=== PATIENT | female | born 1965 | race Caucasian/White ===

== ENCOUNTER 2017-10-07 06:44 | Emergency (ER) | payer BC, SELFPAY ==
--- NOTE | 2017-10-07 07:59 | RAD ---
RIGHT FOOT THREE VIEWS: History: 52-year-old female with history of right foot pain following a prior injury. FINDINGS: Post op changes noted at the level of the ankle joint with severe ankle joint arthrosis. Calcaneal pl lissa and Achilles enthesophytes. Degenerative changes of the foot, particularly the first metatarsal phalangeal joint. No evidence for an overt acute fracture. IMPRESSION: Degenerative changes without acute fracture or dislocation. Severe arthrosis of the ankle joint with extensive post-operative change. POS: [facility]
--- NOTE | 2017-10-07 08:04 | RAD ---
RIGHT ANKLE 3 VIEWS: HISTORY: A 52-year-old female with a history of right foot and ankle pain. The patient had surgery on a fract ured foot approximately 8 months ago. FINDINGS: Three views of the right ankle demonstrate internal fixation changes with intramedullary jhon stabiliz ing the distal fibular and 2 internal fixation screws as well as a cable stabilized in the distal tib ia and fibula. There is very severe tibial talar joint arthrosis with marked cartilage loss and scle rosis and eburnation and some subchondral cystic changes. There is some abnormal widening of the dis maria e tibial fibular space. There still is some type of a linear defect through the distal medial mall eolus. This fracture may not be healed. No evidence for an overt acute fracture. IMPRESSION: Very markedly severe tibiotalar joint arthrosis as well as arthrosis of the distal tibiofibular joint with multiple internal fixation changes. Given history of trauma, this probably represents severe p osttraumatic ankle joint arthritis with questionable union of the medial malleolar fracture and sever e resultant overall deformity of the ankle joint. No evidence for an overt acute fracture. POS: [facility]
== END 2017-10-07 08:23 | disposition home or self-care (01) ==
LOC: ERS 06:44
DX: M25.571 Pain in right ankle and joints of right foot (principal); E03.9 Hypothyroidism, unspecified; F32.9 Major depressive disorder, single episode, unspecified; F17.210 Nicotine dependence, cigarettes, uncomplicated; Z79.899 Other long term (current) drug therapy
CPT/HCPCS: 99406

== ENCOUNTER → 2017-11-27 | Day surgery (SDC) | payer OTHER ==
[~2017-11-27] MED LIST: Lidocaine 1% PF 5 ML VIAL ONE; Sodium Bicarbonate 2.5 MEQ/5 ML VIAL ONE
[2017-11-27 11:15] VITALS: BP 122/77; TEMP 98.1
--- NOTE | 2017-11-27 11:55 | ULT ---
ULTRASOUND GUIDED THYROID FINE NEEDLE ASPIRATION: Date: 11/27/17 COMPARISON: Outside facility ultrasound dated 06/12/17. TECHNIQUE/FINDINGS: Patient brought to the ultrasound suite. All questions were answered. Informed consent was obtained. Timeout was performed. The right neck was prepped and draped in the normal sterile fashion. 3 mL of buffered lidocaine was i nstilled into the superficial and deep soft tissues. Using ultrasound guidance, a total of four 25 ga uge fine needle aspirations were performed and handed to the educational technology coordinator. IMPRESSION: Technically successful ultrasound guided fine needle aspiration. POS: [facility]
== END ==
LOC: ULT 10:37
PROVIDERS: ATTEND Otolaryngology Plastic Surgery within the Head & Neck
PROC: 0G9K3ZX Drainage of Thyroid Gland, Percutaneous Approach, Diagnostic (ICD-10-PCS; principal; 2017-11-27)
PROC: BG43ZZZ Ultrasonography of Parathyroid Glands (ICD-10-PCS; principal; 2017-11-27)
DX: E04.1 Nontoxic single thyroid nodule (principal)
CPT/HCPCS: 10022; 76942; 88173; J2001

== ENCOUNTER 2018-06-24 10:05 | Outpatient (CLI) | payer OTHER ==
[~2018-06-24 10:05] MED LIST changes: +Gadobenate Dimeglumine 529 MG/1 ML (20ML VIAL) ONE; -Lidocaine 1% PF 5 ML VIAL ONE; -Sodium Bicarbonate 2.5 MEQ/5 ML VIAL ONE
--- NOTE | 2018-06-24 14:15 | MRI ---
RIGHT LOWER EXTREMITY MRI WITH AND WITHOUT IV CONTRAST: Date: 06/24/18 HISTORY: 53-year-old female with more pain in left lower leg, prior surgery on 12/21/17. FINDINGS: Comparison made to a prior plain film examination dated 10/07/17. Multiplanar, multisequence MRI examination of the lower leg, including the ankle, demonstrates extens albert postoperative changes at the ankle joint with metallic susceptibility artifact. There is severe n arrowing of the tibiotalar joint with some associated abnormal marrow signal in the distal tibia, as well as the talar dome, with several osteochondral lesions involving the talar dome. There also appea rs to be considerable sclerosis. There is extensive arthrosis of the fibular talar joint, as well as medial malleolar talar joint. Internal fixation changes stabilizing medial malleolus and intramedulla ry jhon stabilizing distal fibula. At the mid fibula level, there is a focal area of exuberant callus, probably related to an old, healed injury. There is no evidence for drainable abscess. There is some muscle volume loss within the calf musculature, with relative sparing of the posterior tibialis musc le. Achilles tendon and plantar fascia appear intact. The flexor, extensor, and peroneus tendons appe ar intact. Ankle collateral ligament complexes are very poorly demonstrated because of the metal susc eptibility. IMPRESSION: Markedly abnormal tibiotalar joint with joint space loss and sclerosis and eburnation, as well as sub chondral cystic changes of the talar dome and multiple places, evidence for multiple talar dome osteo chondral lesions, as well as arthrosis of the fibular talar joint and medial malleolar talar joint. I nternal fixation of the medial malleolus and jhon stabilizing the distal fibula. No evidence for a wilian inable abscess. There is some generalized muscle volume loss within the calf musculature with relativ e sparing of the posterior tibialis muscle. No other significant acute process. POS: [facility]
== END 2018-06-24 10:06 | disposition home or self-care (01) ==
LOC: BICMRI 10:05 → SCSMRI 10:06
DX: Z12.31 Encounter for screening mammogram for malignant neoplasm of breast (principal); M25.571 Pain in right ankle and joints of right foot; M89.8X6 Other specified disorders of bone, lower leg; M19.071 Primary osteoarthritis, right ankle and foot; Z80.3 Family history of malignant neoplasm of breast
CPT/HCPCS: 77063; 77067

== ENCOUNTER 2019-01-27 15:14 | Outpatient (CLI) | payer OTHER ==
--- NOTE | 2019-01-27 15:54 | MMO ---
Right Breast MAMMO Unilat Diag DDI RT+MELLISA. CLINICAL HISTORY: Patient is 54 years old and is seen for diagnostic exam and lump or thickening in the right breast. The patient has no family history of breast cancer. The patient has no personal history of cancer. VIEWS: The views performed were: right craniocaudal with tomosynthesis; right mediolateral oblique with tomosynthesis; and right mediolateral. FILMS COMPARED: The present examination has been compared to prior imaging studies performed at [facility] on 02/28/2010, 09/19/2013, 06/24/2018 and 01/27/2019. MAMMOGRAM FINDINGS: There are scattered fibroglandular densities. No mammographic abnormality in the region of palpable concern. An intramammary lymph node is seen by ultrasound in this location. There are no suspicious masses, suspicious calcifications, or new areas of architectural distortion. IMPRESSION: THERE IS NO MAMMOGRAPHIC EVIDENCE OF MALIGNANCY. THE RESULTS OF THIS EXAM WERE SENT TO THE PATIENT. ACR BI-RADS Category 2 - Benign finding MAMMOGRAPHY NOTE: 1. A negative mammogram report should not delay a biopsy if a dominant of clinically suspicious mass is present. 2. Approximately 10% to 15% of breast cancers are not detected by mammography. 3. Adenosis and dense breasts may obscure an underlying neoplasm.
--- NOTE | 2019-01-27 16:05 | ULT ---
LIMITED RIGHT BREAST ULTRASOUND: DATE: 01/27/2019. PROVIDED CLINICAL HISTORY: Right breast palpable abnormality. FINDINGS: Limited sonographic interrogation of the right breast was performed in the region of palpable concern . Intramammary lymph node measuring about 6 mm is documented in this location. No concerning sonogr aphic findings are evident. IMPRESSION: BIRADS category 2 - benign findings. POS: [facility]
== END 2019-01-27 15:15 | disposition home or self-care (01) ==
LOC: BICMAMMO 15:14
PROVIDERS: ATTEND Family Medicine
DX: N63.10 Unspecified lump in the right breast, unspecified quadrant (principal)
CPT/HCPCS: G0279

== ENCOUNTER 2019-07-26 09:37 | Day surgery (SDC) | payer OTHER ==
[2019-07-25 15:17] VITALS: BMI 26.5
[2019-07-26] MEDS ORDERED: PROPOFOL 200 MG/20 ML VIAL ONE (10:15)
[2019-07-26] MEDS ORDERED: Lidocaine 1% PF 5 ML VIAL ONE (10:15)
[2019-07-26] MEDS ORDERED: Ondansetron PF 4 MG/2 ML Vial ONE (10:15)
[2019-07-26] MEDS ORDERED: ePHEDrine/0.9% NaCl/PF SYRINGE 50 mg/10 ml ONE (10:15)
[2019-07-26] MEDS ORDERED: Ketorolac Tromethamine 30 MG/ML VIAL ONE (10:15)
[2019-07-26] MEDS ORDERED: Dexamethasone 20 MG/5 ML VIAL ONE (10:15)
[2019-07-26] MEDS ORDERED: PHENYLEPHRINE-NS 100 MCG/ML 10 ML SYRINGE ONE (10:15)
[2019-07-26 10:54] LABS: #Basophils 0.1 thou/uL (0.0-0.2); #Eosinphils 0.7 thou/uL (0.0-0.7); #Lymphocytes 4.4 thou/uL (1.20-3.40); #Monocytes 0.6 thou/uL (0.11-0.59); #Neutrophils 4.5 thou/uL (1.40-6.50); %Basophils 1.2 % (0.0-1.0); %Eosinophils 6.5 % (0.0-10.0); %Lymphocytes 42.9 % (21.0-51.0); %Monocytes 5.9 % (0.0-10.0); %Neutrophils 43.6 % (42.0-75.0); Hemoglobin 14.2 g/dL (12.0-16.0); Mean Corpuscular HGB CONC 33.5 g/dL (32.0-36.0); Mean Corpuscular Hemoglobin 29.7 pg (27.0-31.0); Mean Corpuscular Volume 88.4 fL (78.0-98.0); Mean Platelet Volume 8.6 fL (7.4-10.4); Platelet Count 223 thou/uL (130-400); RBC Distribution Width 15.9 % (11.5-14.5); Red Blood Cell (RBC) Count 4.79 mill/uL (4.20-5.40); White Blood Cell (WBC) Count 10.2 thou/uL (4.8-10.8)
[2019-07-26 10:56] LABS: Anion Gap 12 mmol/L (10-20); BUN (Urea Nitrogen) 10 mg/dL (9.8-20.1); Calc. Creatinine Clearance 78 mL/min (70-130); Calcium 9.3 mg/dL (7.8-10.44); Carbon Dioxide 28 mmol/L (22-29); Chloride 104 mmol/L (98-107); Estimated GFR-MDRD 68; Glucose 87 mg/dL (70-105); Potassium 3.9 mmol/L (3.5-5.1); Sodium 140 mmol/L (136-145)
[2019-07-26 11:06] LABS: Bilirubin Negative (Negative); Blood, Urine Negative (Negative); Clarity Clear (Clear); Glucose, Urine (Dipstick) Normal (Negative); Leukocyte 75 Leu/uL (Negative); Nitrite Negative (Negative); Protein, Urine (Dipstick) 20 mg/dL (Neg-Trace); RBC/HPF 0-3 HPF (0-3); WBC/HPF 0-3 HPF (0-3)
[2019-07-26 11:19] LABS: Bacteria/HPF Rare-Few HPF (None Seen)
[2019-07-26] MEDS ORDERED: Bupivacaine PF 0.5% 30 ML VIAL ONE (14:21)
[2019-07-26] MEDS ORDERED: Bacitracin Zinc Ointment 30 gm TUBE ONE (14:21)
[2019-07-26] MEDS ORDERED: Sodium Chloride 0.9% 10 ML ONE (14:21)
[2019-07-26] MEDS ORDERED: Betamet Acet/Betamet Na Ph 30 MG/5 ML VIAL ONE (14:21)
[2019-07-26] MEDS ORDERED: Fentanyl 100 MCG/2 ML VIAL ONE (14:26)
--- NOTE | 2019-07-26 17:06 | OP ---
DATE OF PROCEDURE: 07/26/2019 PREOPERATIVE DIAGNOSIS: Left 1st dorsal compartment tenosynovitis. POSTOPERATIVE DIAGNOSIS AND FINDINGS: 1. Very thick tenosynovium, 1st dorsal compartment abductor pollicis longus and then a separate compartment of extensor pollicis brevis, necessitating compartment release. PROCEDURES PERFORMED: 1. Left 1st dorsal compartment extensor tendon tenosynovectomy, radical, all within the same compartment. 2. Left de Quervain release. SPECIMEN SENT: Tenosynovium. TOURNIQUET TIME: 10 minutes. ESTIMATED BLOOD LOSS: 5 mL. DESCRIPTION OF PROCEDURE: After successful general endotracheal anesthesia, the limb was prepped and draped. Time-out was done appropriately. We then injected the outline zigzag incision over the 1st dorsal compartment, that was 15 mm long, with the 10 mL of 0.5% Marcaine. We inflated the tourniquet after the limb exsanguination. The skin incision was carried with a knife through both layers of the dermis and epidermis, found the superficial radial nerve branches and then gently dissected from the center field. The extensor compartment was very thick as was the tenosynovium proximal to this. We made an incision this through [place] blade, released it. Then, we saw the abductor pollicis longus, it had two heads and extensor pollicis brevis was in a separate compartment. Released this compartment as well. We then had to perform a radical extensor tenosynovectomy of the abductor pollicis longus because of the tenosynovium, still protected the nerve, sent the specimen off to the lab. We placed 5 mL of Celestone along the tendon and we took it through several cycles. We maintained a very robust volar area, so it would not sublux, released the tourniquet, obtained hemostasis, and closed the wound with interrupted 4-0 nylon in a simple pattern. Bulky dressing was applied. The patient left the operating room without evidence of anesthetic or operative complication. Job ID: [id number]
== END 2019-07-26 17:09 | disposition home or self-care (01) ==
LOC: SDC 09:37
PROVIDERS: ATTEND Orthopaedic Surgery Hand Surgery
DX: M65.4 Radial styloid tenosynovitis [de Quervain] (principal); M18.12 Unilateral primary osteoarthritis of first carpometacarpal joint, left hand; E03.9 Hypothyroidism, unspecified; F32.9 Major depressive disorder, single episode, unspecified; F17.200 Nicotine dependence, unspecified, uncomplicated; Z79.899 Other long term (current) drug therapy; Z88.5 Allergy status to narcotic agent
CPT/HCPCS: 36415; 80048; 81001; 85025; 88305; 89060; 93005; 93010; J0690; J0702; J1100; J1885; J2001; J2405; J2704; J3010; J3490; S0020

== ENCOUNTER 2020-02-06 09:47 | Outpatient (CLI) | payer OTHER ==
[2020-02-06] MEDS ORDERED: Lidocaine 1% PF 10 ML AMP ONE (11:20)
[2020-02-06] MEDS ORDERED: Iopamidol 300 61% 50 ML VIAL FS ONE (11:20)
[2020-02-06] MEDS ORDERED: EPINEPHrine 1 MG/ML AMP ONE (11:20)
[2020-02-06] MEDS ORDERED: Gadobenate Dimeglumine 529 MG/1 ML (20ML VIAL) ONE (11:20)
--- NOTE | 2020-02-06 11:51 | RAD ---
Exam: Right shoulder arthrogram HISTORY: Right shoulder pain. COMPARISON: None FINDINGS: 3 view right shoulder phlebotomy specialist radiograph of a straight degenerative change in the acromioclav icular joint space. Glenohumeral joint space is preserved. No fracture or dislocation. Successful right shoulder arthrogram. A total of 12 cc of the contrast admixture was administered into the joint space TECHNIQUE: Consent obtained to perform a right shoulder arthrogram. Right shoulder was prepped and dr aped in a sterile fashion. 1% lidocaine, buffered with sodium bicarbonate was used for local anesthesia. Under fluoroscopic guidance, 22-gauge spinal needle was advanced into the right shoulder joint space. 12 cc of the contrast admixture was administered. Patient tolerated the procedure well. No immediate or postprocedure complications IMPRESSION: Successful right shoulder arthrogram.
--- NOTE | 2020-02-06 12:56 | MRI ---
MR THE RIGHT SHOULDER WITH INTRA-ARTICULAR CONTRAST INDICATION: History of chronic right shoulder pain TECHNIQUE: Multiplanar multisequence MR images were obtained of the right shoulder following introduc tion of a dilute gadolinium solution into the right shoulder. Please see the separately dictated right shoulder arthrogram for details concerning the injection technique. Motion artifact heavily stephenson its image detail on the examination. FINDINGS: There is susceptibility artifact involving the superior glenoid head suspicious for changes of a prio r SLAP repair. There is elevation seen involving the anterior superior aspect of the glenoid labrum possibly related to a [place]'s complex. No definite recurrent SLAP tear is grossly evident. Biceps te ndon is located. The rotator cuff is intact. There is mild tendinosis of the supraspinatus and infraspinatus. Small amount of fluid is seen within the subacromial subdeltoid bursa. There is mild A C joint osteoarthrosis. Anterior inferior glenohumeral labral ligamentous complex is intact. No muscular atrophy is evident. IMPRESSION: 1. Limitations in exam due to motion artifact. 2. Postprocedural change consistent with a prior SLAP repair. There is elevation of the anterior supe rior glenoid labrum from the glenoid head margin likely reflective of a [place] complex. 3. Mild tendinosis of the supraspinatus and infraspinatus without evidence of full-thickness tear. 4. Mild AC joint osteoarthrosis..
== END 2020-02-06 09:48 | disposition home or self-care (01) ==
LOC: RAD 09:47
PROVIDERS: ATTEND Orthopaedic Surgery
DX: M25.511 Pain in right shoulder (principal); M19.011 Primary osteoarthritis, right shoulder; M75.91 Shoulder lesion, unspecified, right shoulder; Z98.890 Other specified postprocedural states
CPT/HCPCS: 23350; A9577; J0171; J2001; Q9967

== ENCOUNTER 2020-05-08 07:28 | Outpatient (CLI) | payer OTHER ==
[2020-05-08 18:13] LABS: #Basophils 0.1 thou/uL (0.0-0.2); #Eosinphils 0.5 thou/uL (0.0-0.7); #Lymphocytes 2.4 thou/uL (1.20-3.40); #Monocytes 0.4 thou/uL (0.11-0.59); #Neutrophils 3.5 thou/uL (1.40-6.50); %Basophils 1.3 % (0.0-1.0); %Eosinophils 6.6 % (0.0-10.0); %Lymphocytes 35.2 % (21.0-51.0); %Monocytes 6.3 % (0.0-10.0); %Neutrophils 50.6 % (42.0-75.0); Hemoglobin 14.9 g/dL (12.0-16.0); Mean Corpuscular HGB CONC 34.1 g/dL (32.0-36.0); Mean Corpuscular Hemoglobin 31.5 pg (27.0-31.0); Mean Corpuscular Volume 92.6 fL (78.0-98.0); Mean Platelet Volume 8.6 fL (7.4-10.4); Platelet Count 210 thou/uL (130-400); RBC Distribution Width 13.1 % (11.5-14.5); Red Blood Cell (RBC) Count 4.72 mill/uL (4.20-5.40); White Blood Cell (WBC) Count 6.9 thou/uL (4.8-10.8)
[2020-05-08 18:27] LABS: Anion Gap 12 mmol/L (10-20); BUN (Urea Nitrogen) 13 mg/dL (9.8-20.1); Calc. Creatinine Clearance 0 mL/min (70-130); Calcium 9.3 mg/dL (7.8-10.44); Carbon Dioxide 30 mmol/L (22-29); Chloride 104 mmol/L (98-107); Estimated GFR-MDRD 72; Glucose 93 mg/dL (70-105); Potassium 4.3 mmol/L (3.5-5.1); Sodium 142 mmol/L (136-145)
[2020-05-09 11:58] LABS: SARS-CoV-2 MS2 Positive; SARS-CoV-2 N Gene Negative; SARS-CoV-2 S Gene Negative; SARS-CoV-2 by NAA Not Detected (NotDetected); SARS-CoV-2 orf1ab Negative
== END 2020-05-08 07:29 | disposition home or self-care (01) ==
LOC: LABBT 07:28
PROVIDERS: ATTEND Orthopaedic Surgery
DX: Z01.818 Encounter for other preprocedural examination (principal); Z20.828 Contact with and (suspected) exposure to other viral communicable diseases; S43.401A Unspecified sprain of right shoulder joint, initial encounter
CPT/HCPCS: 80048; 85025; 87635; 93005; 93010; U0003

== ENCOUNTER 2020-05-11 06:18 | Day surgery (SDC) | payer OTHER ==
[2020-05-09 14:52] VITALS: BMI 28.3
[2020-05-11] MEDS ORDERED: Fentanyl 100 MCG/2 ML VIAL ONE ×2 (06:26→06:37)
[2020-05-11] MEDS ORDERED: Midazolam HCl 2 mg/2 ml Vial ONE (06:37)
[2020-05-11] MEDS ORDERED: Lidocaine 1% (PF) 30 ML VIAL ONE (06:38)
[2020-05-11] MEDS ORDERED: Bupivacaine/Epinephrine 0.25% 30 ML VIAL ONE (07:01)
[2020-05-11] MEDS ORDERED: Lidocaine 2% Jelly 5 ML TUBE ONE (07:34)
[2020-05-11] MEDS ORDERED: Phenylephrine 10 MG/ML VIAL ONE (07:53)
[2020-05-11] MEDS ORDERED: Fentanyl 100 MCG/2 ML VIAL SLOW IVP PRN (08:07)
[2020-05-11] MEDS ORDERED: Ondansetron PF 4 MG/2 ML Vial IVP PRN (08:15)
[2020-05-11] MEDS ORDERED: Promethazine HCl 25 MG/ML VIAL IM PRN (08:15)
[2020-05-11] MEDS ORDERED: Zolpidem Tartrate 5 MG TAB PO PRN (08:15)
[2020-05-11] MEDS ORDERED: traMADol HCl 50 MG TAB PO PRN ×2 (08:15)
[2020-05-11] MEDS ORDERED: Ropivacaine 0.2% 550 ML 550 ML NERVE BLCK SCH (08:15)
[2020-05-11] MEDS ORDERED: Ketorolac Tromethamine 30 MG/ML VIAL IVP SCH (12:00)
[2020-05-11] MEDS ORDERED: Ondansetron PF 4 MG/2 ML Vial ONE (13:56)
[2020-05-11] MEDS ORDERED: Glycopyrrolate 0.2 MG/ML 5 ML SYRINGE ONE (13:56)
[2020-05-11] MEDS ORDERED: Dexamethasone 20 MG/5 ML VIAL ONE (13:56)
[2020-05-11] MEDS ORDERED: EPHEDRINE 25 MG/5 ML SYRINGE ONE (13:56)
[2020-05-11] MEDS ORDERED: PHENYLEPHRINE-NS 100 MCG/ML 10 ML SYRINGE ONE (13:56)
[2020-05-11] MEDS ORDERED: Ropivacaine 0.2% HCl/PF (40 MG/20 ML VIAL) ONE (13:56)
[2020-05-11] MEDS ORDERED: Ropivacaine 0.5% HCl/PF (150 MG/30 ML VIAL) ONE (13:56)
[2020-05-11] MEDS ORDERED: Rocuronium Bromide 10 MG/ML (10ML VIAL) ONE (13:56)
[2020-05-11] MEDS ORDERED: PROPOFOL 200 MG/20 ML VIAL ONE (13:56)
--- NOTE | 2020-05-11 16:30 | OP ---
DATE OF PROCEDURE: 05/11/2020 PREOPERATIVE DIAGNOSES: Right shoulder partial cuff tear, degenerative labral tear, and biceps instability and tearing. POSTOPERATIVE DIAGNOSES: Right shoulder partial cuff tear, degenerative labral tear, and biceps instability and tearing. PROCEDURES PERFORMED: 1. Right shoulder arthroscopy with subacromial decompression. 2. Debridement and shaving of undersurface partial rotator cuff tear as well as degenerative superior labral tear. 3. Open biceps tenodesis. METAL FORGER'S ASSISTANT: Tacos Hays PA-C ESTIMATED BLOOD LOSS: Minimal. COMPLICATIONS: None. ANESTHESIA: The patient had a general anesthetic as well as a preoperative block. IMPLANTS: We used a 7 x 23 BioComposite Bio-Tenodesis screw. DISPOSITION: She did go to recovery room in stable condition. INDICATIONS FOR PROCEDURE: This is a 55-year-old female who has been having problems with the right shoulder for a while, and at this time, she is presenting for surgery. Unfortunately, she has failed all nonoperative treatment. DESCRIPTION OF PROCEDURE: After all appropriate consent forms were explained and signed, Ms. Hull was taken to the operating room and at this time was given general anesthetic. Once the level of anesthesia was appropriate, she was rolled into the left lateral decubitus position. Axillary roll was placed underneath the left axilla. All bony prominences were well padded and a beanbag was inflated to hold in this position. The arm was taken through full range of motion and then suspended with 10 pounds in standard arthroscopic fashion. At this time, the right shoulder and upper extremity were prepped and draped in standard surgical fashion. Bony anatomical landmarks were drawn out and the subacromial space was infiltrated with Marcaine with epinephrine. At this time, we made our posterior portal. Scope was placed into the shoulder joint and a diagnostic arthroscopy was commenced. Anterior working portal was made using a needle localization technique. Diagnostic arthroscopy showed good cartilage near humeral head and glenoid. There were no loose bodies in the axillary pouch. The patient did have a degenerative superior labral tear, which extended into the biceps root. She also had a tear at the very top of her subscapularis leading to biceps instability and a partial undersurface tear of the supraspinatus. Shaver was introduced to debride all the aforementioned areas. The rotator cuff tear was at maximum 15% thickness. At this time, we used an 18-gauge needle to killian the biceps and place a stitch through it. The biceps was cut off its labral insertion using the arthroscopic scissors. This area was debrided. At this time, we removed the scope and replaced it into the subacromial space. Lateral working portal was made. At this time, a small bony decompression was performed using the SERFAS energy as well as a shaver. All bursa was removed off the underlying cuff and the cuff was found to be in good condition. The scope was removed. Shoulder was drained. A 15 blade was used to make an incision down through skin. Bovie was used to coagulate any brisk venous bleeding. We then entered the deltoid fascia sharply and used finger dissection to dissect the deltoid in line with its fibers to get down to the underlying transverse humeral ligament. The transverse humeral ligament once opened up, we brought the biceps into the wound. All brisk venous bleeding was coagulated. The biceps tendon was sutured. The intra-articular portion was cut off and removed from the field. A pin was placed. A 7 mm reamer was used to ream to a depth of 25 and a 7 x 23 BioComposite Bio-Tenodesis screw was placed in a standard fashion to fixate our biceps tendon. Sutures were tied over top, so the screw could not back out. We then thoroughly irrigated and dried this area. We allowed the deltoid fascia to close upon itself. We ran a Vicryl to close this fascia, 2-0 Vicryl, and nylon sutures were used to close the skin. Portals were closed with simple nylon stitch. Bulky sterile dressing was applied. The patient was then awakened and taken to recovery room in stable condition. All counts were correct at the end of the case. She received preoperative IV antibiotics. The assistant professor of philosophy surgeon was present throughout the entire open biceps procedure, including the approach, fixation of the tendon, and the closure of wound. Job ID: [id number] [facility]
== END 2020-05-11 12:20 | disposition home or self-care (01) ==
LOC: SDC 06:18
PROVIDERS: ATTEND Orthopaedic Surgery
DX: S43.431A Superior glenoid labrum lesion of right shoulder, initial encounter (principal); G89.18 Other acute postprocedural pain; Z79.899 Other long term (current) drug therapy; Z88.5 Allergy status to narcotic agent; Z88.8 Allergy status to other drugs, medicaments and biological substances
CPT/HCPCS: A4306; C1713; J0690; J1100; J2001; J2250; J2370; J2405; J2704; J2795; J3010

== ENCOUNTER 2023-10-03 17:27 | Emergency (ER) | payer OTHER | END 2023-10-03 18:00 | disposition home or self-care (01) | LOC: ERS 17:27 | DX: M54.50 Low back pain, unspecified (principal); E03.9 Hypothyroidism, unspecified; F17.290 Nicotine dependence, other tobacco product, uncomplicated; Z55.6 Problems related to health literacy; Z79.899 Other long term (current) drug therapy | CPT/HCPCS: 99283 ==